=== PATIENT | female | born 1950 | race Hispanic/Latino ===

== ENCOUNTER 2017-11-22 21:50 | Emergency (ER) | payer OTHER, MEDICARE ==
[2017-11-22 22:29] LABS: EOSINOPHILS % (AUTO) 4.2 % (0.0-8.0); HEMATOCRIT 37.6 % (36-48); LYMPHOCYTES % (AUTO) 30.2 % (21.0-51.0); MEAN CORPUSCULAR HGB CONC 33.8 g/dL (32.0-36.0); MEAN CORPUSCULAR VOLUME 82.9 fL (79-99); NEUTROPHILS % (AUTO) 57.6 % (40.0-77.0); PLATELET COUNT (AUTO) 262 K/uL (130-400); RED BLOOD CELL COUNT(AUTO) 4.53 MIL/uL (4.00-5.50); RED CELL DISTRIBUTION WIDTH 13.7 % (11.0-15.5); WHITE BLOOD COUNT (AUTO) 10.6 K/uL (4.8-10.8)
[2017-11-22 22:41] LABS: CREATININE 0.6 mg/dL (0.5-1.5); POTASSIUM 4.2 mmol/L (3.5-5.1)
[2017-11-22 23:00] LABS: B-TYPE NATRIURETIC PEPTIDE 8 pg/mL (0-100)
== END 2017-11-23 00:11 | disposition home or self-care (01) ==
LOC: EDH 21:50
DX: I10 Essential (primary) hypertension (principal); E78.5 Hyperlipidemia, unspecified
CPT/HCPCS: 36415; 70450; 80048; 83880; 84484; 85025; 93005

== ENCOUNTER 2018-08-06 12:50 | Observation (INO) | payer OTHER, MEDICARE ==
[~2018-08-06] VITALS: Ht 157.5 cm; Wt 90.2 kg
[2018-08-06] MEDS ORDERED: ASPIRIN 325 MG TABLET ONE (13:00)
[2018-08-06 13:04] LABS: BASOPHILS % (AUTO) 0.7 % (0.0-5.0); EOSINOPHILS % (AUTO) 1.6 % (0.0-8.0); HEMATOCRIT 38.8 % (36-48); LYMPHOCYTES % (AUTO) 15.3 % (21.0-51.0); MEAN CORPUSCULAR HEMOGLOBIN 27.9 pg (27.0-33.0); MEAN CORPUSCULAR HGB CONC 33.4 g/dL (32.0-36.0); MEAN CORPUSCULAR VOLUME 83.4 fL (79-99); MONOCYTES % (AUTO) 5.6 % (3.0-13.0); NEUTROPHILS % (AUTO) 76.8 % (40.0-77.0); NUCLEATED RED BLOOD CELLS 0.1 % (0.0-0.19); PLATELET COUNT (AUTO) 237 K/uL (130-400); RED BLOOD CELL COUNT(AUTO) 4.65 MIL/uL (4.00-5.50); RED CELL DISTRIBUTION WIDTH 13.3 % (11.0-15.5); WHITE BLOOD COUNT (AUTO) 10.9 K/uL (4.8-10.8)
[2018-08-06 13:22] LABS: ALBUMIN 3.7 g/dL (3.5-5.0); BILIRUBIN,TOTAL 0.4 mg/dL (0.2-1.0); CREATININE 0.6 mg/dL (0.5-1.5); POTASSIUM 3.5 mmol/L (3.5-5.1); TOTAL PROTEIN, SERUM 7.6 g/dL (6.0-8.3)
[2018-08-06 13:25] LABS: INR 0.93 (0.85-1.15); PARTIAL THROMBOPLASTIN TIME 34.1 SEC (26.3-35.5); PROTHROMBIN TIME 9.8 SEC (9.6-11.6)
[2018-08-06] MEDS ORDERED: ONDANSETRON HCL 4 MG/2 ML VIAL ONE (13:28)
[2018-08-06 16:42] VITALS: BP 141/78
[2018-08-06] MEDS ORDERED: SODIUM CHLORIDE 0.9% 1000ML 1,000 ML IV SCH (17:00)
[2018-08-06] MEDS ORDERED: AEC81 PO (17:11)
[2018-08-06] MEDS ORDERED: DULO30CA51 PO (17:11)
[2018-08-06] MEDS ORDERED: LOSA100T20 PO (17:11)
[2018-08-06] MEDS ORDERED: HYDR12.530 PO (17:11)
[2018-08-06] MEDS ORDERED: ROSU20TA30 PO (17:11)
[2018-08-06] MEDS ORDERED: OMEG-148 PO (17:11)
[2018-08-06 19:15] VITALS: BP 143/67
[2018-08-06 19:45] LABS: CREATINE KINASE, TOTAL 85 U/L (21-232); MYOGLOBIN 62 ng/mL (10-92); TROPONIN I < 0.04 ng/mL (0.00-0.06)
[2018-08-06 23:53] VITALS: BP 136/64
[2018-08-07 01:54] LABS: HEMATOCRIT 37.9 % (36-48); MEAN CORPUSCULAR HEMOGLOBIN 27.9 pg (27.0-33.0); MEAN CORPUSCULAR HGB CONC 33.3 g/dL (32.0-36.0); MEAN CORPUSCULAR VOLUME 83.7 fL (79-99); NUCLEATED RED BLOOD CELLS 0.1 % (0.0-0.19); PLATELET COUNT (AUTO) 224 K/uL (130-400); RED BLOOD CELL COUNT(AUTO) 4.53 MIL/uL (4.00-5.50); RED CELL DISTRIBUTION WIDTH 13.2 % (11.0-15.5); WHITE BLOOD COUNT (AUTO) 8.5 K/uL (4.8-10.8)
[2018-08-07 01:59] LABS: CREATININE 0.6 mg/dL (0.5-1.5); POTASSIUM 3.4 mmol/L (3.5-5.1)
[2018-08-07 02:10] LABS: CREATINE KINASE, TOTAL 79 U/L (21-232); MYOGLOBIN 30 ng/mL (10-92); TROPONIN I < 0.04 ng/mL (0.00-0.06)
[2018-08-07 03:41] VITALS: BP 119/48
[2018-08-07 07:34] VITALS: BP 126/56
[2018-08-07] MEDS ORDERED: ASPIRIN 81MG TAB.CHEW PO SCH (09:00)
[2018-08-07] MEDS ORDERED: PANTOPRAZOLE SODIUM 40 MG TABLET.DR PO SCH (09:00)
[2018-08-07] MEDS ORDERED: ATORVASTATIN CALCIUM 40 MG TABLET PO SCH (09:00)
[2018-08-07] MEDS ORDERED: ENOXAPARIN SODIUM 40 MG/0.4 ML SYRINGE SQ SCH (09:00)
[2018-08-07 11:11] VITALS: BP 129/61
[2018-08-07] MEDS ORDERED: ACETAMINOPHEN 325 MG TAB PO PRN (12:00)
[2018-08-07] MEDS ORDERED: POTASSIUM CHLORIDE 10% ELIXIR 20 MEQ/15 ML UDCUP PO PRN (13:30)
[2018-08-07] MEDS ORDERED: LIDOCAINE HCL-MPF 1% 2ML VIAL IVP PRN (13:30)
[2018-08-07] MEDS ORDERED: POTASSIUM CHLORIDE 20MEQ/100ML 100 ML IV PRN (13:30)
[2018-08-07] MEDS ORDERED: POTASSIUM CHLORIDE 20 MEQ ERTAB PO PRN (13:30)
[2018-08-07 16:24] VITALS: BP 128/62
== END 2018-08-07 18:29 | disposition home or self-care (01) ==
LOC: EDH 12:50 → EDHIP 15:32 → 2DH 16:21
PROVIDERS: ADMIT Internal Medicine; ATTEND Internal Medicine
DX: R07.89 Other chest pain (principal); I12.9 Hypertensive chronic kidney disease with stage 1 through stage 4 chronic kidney disease, or unspecified chronic kidney disease; N18.9 Chronic kidney disease, unspecified; E03.9 Hypothyroidism, unspecified; E78.5 Hyperlipidemia, unspecified; M79.7 Fibromyalgia; Z82.49 Family history of ischemic heart disease and other diseases of the circulatory system; Z86.73 Personal history of transient ischemic attack (TIA), and cerebral infarction without residual deficits; Z87.891 Personal history of nicotine dependence; Z90.710 Acquired absence of both cervix and uterus; Z23 Encounter for immunization
CPT/HCPCS: 36415 ×2; 70450; 71045 ×2; 80048; 80053; 82550 ×3; 83690; 83874 ×3; 84439; 84443; 84484 ×3; 85025; 85027; 85610; 85730; 93005 ×3; 93306; 96372; 99285; G0008; G0378 ×27; J1650; J2405; Q2038

== ENCOUNTER → 2019-01-19 | Outpatient (CLI) | payer OTHER, MEDICARE ==
[~2019-01-19] MED LIST: AEC81 PO; DULO30CA51 PO; HYDR12.530 PO; LOSA100T58 PO; OMEG-148 PO; REGADENOSON 0.4 MG/5 ML PF SYG IVP SCH; ROSU20TA30 PO
== END | disposition home or self-care (01) ==
LOC: SHCH 08:34
PROVIDERS: ATTEND Internal Medicine Cardiovascular Disease
DX: R07.9 Chest pain, unspecified (principal)
CPT/HCPCS: 78452; 93017; 96374; A9500 ×2

== ENCOUNTER → 2023-03-14 | Outpatient (CLI) | payer OTHER, MEDICARE ==
[~2023-03-14] MED LIST changes: -DULO30CA51 PO; +DULO30CA52 PO; -LOSA100T58 PO; +LOSA100T59 PO; -REGADENOSON 0.4 MG/5 ML PF SYG IVP SCH; -ROSU20TA30 PO; +ROSU20TA31 PO
== END | disposition home or self-care (01) ==
LOC: SHCH 13:10
PROVIDERS: ATTEND Internal Medicine Cardiovascular Disease
DX: I08.0 Rheumatic disorders of both mitral and aortic valves (principal)
CPT/HCPCS: 93306

== ENCOUNTER → 2023-03-15 | Outpatient (CLI) | payer OTHER, MEDICARE ==
[~2023-03-15] MED LIST changes: +REGADENOSON 0.4 MG/5 ML PF SYG IVP ONE
== END | disposition home or self-care (01) ==
LOC: SHCH 07:59
PROVIDERS: ATTEND Internal Medicine Cardiovascular Disease
DX: R07.9 Chest pain, unspecified (principal)
CPT/HCPCS: 78452; 96374; 93017; J2785; A9500 ×2

== ENCOUNTER → 2023-10-14 | Outpatient (CLI) | payer OTHER, MEDICARE ==
[~2023-10-14] MED LIST changes: -REGADENOSON 0.4 MG/5 ML PF SYG IVP ONE; -ROSU20TA31 PO; +ROSU20TA73 PO
[2023-10-14 16:46] LABS: CHOLESTEROL 240 mg/dL (<200); HDL CHOLESTEROL 72 mg/dL (35-85); LDL DIRECT 137 mg/dL (0-99); TRIGLYCERIDES 105 mg/dL (30-200)
== END | disposition home or self-care (01) ==
LOC: LAB 11:40
PROVIDERS: ATTEND Physician Assistant
DX: I10 Essential (primary) hypertension (principal); E78.5 Hyperlipidemia, unspecified; I35.0 Nonrheumatic aortic (valve) stenosis
CPT/HCPCS: 36415; 80061

== ENCOUNTER 2023-12-09 04:59 | Observation (INO) | payer OTHER, MEDICARE ==
[2023-12-05 13:22] VITALS: BP 188/73; PULSE 61; RESP 19
[~2023-12-09] VITALS: Ht 154.9 cm; Wt 92.0 kg
[2023-12-09] VITALS (27 sets, daily range): BP systolic 120–227; BP diastolic 52–93; PULSE 67–91; RESP 12–20
[~2023-12-09 04:59] MED LIST changes: +BUDE10.7 IH; +CETI10TA57 PO; -DULO30CA52 PO; +FLUT15.845 NS; -HYDR12.530 PO; +LEVO50CA4 PO; -LOSA100T59 PO; +METF-444 PO; -OMEG-148 PO; +PANT40TA54 PO; +ROSU10TA28 PO; -ROSU20TA73 PO; +VALS320T16 PO; +albuterol sulfate IH
[2023-12-09] MEDS: 0.9%NACL 1000ML 1,000 ML IV ONE ×2 (06:59→10:22)
[2023-12-09] MEDS: CEFAZOLIN SODIUM 2 GM VIAL ONE (07:00)
[2023-12-09] MEDS ORDERED: LIDOCAINE PF 100MG/5ML (2%) SYRINGE 5ML ONE (08:56)
[2023-12-09] MEDS ORDERED: DEXAMETHASONE SOD PHOSPHATE 10MG/ML 1ML VIAL ONE (08:56)
[2023-12-09] MEDS ORDERED: PROPOFOL 10 MG/ML 20ML VIAL IV ONE (08:56)
[2023-12-09] MEDS ORDERED: GLYCOPYRROLATE 0.2 MG/ML 5 ML VIAL ONE (08:56)
[2023-12-09] MEDS ORDERED: SUCCINYLCHOLINE CHLORIDE 20 MG/ML 10 ML VIAL ONE (08:56)
[2023-12-09] MEDS ORDERED: ROCURONIUM BROMIDE 10MG/1ML 5ML VL ONE (08:57)
[2023-12-09] MEDS ORDERED: ONDANSETRON 4MG INJ ONE (08:57)
[2023-12-09] MEDS ORDERED: MIDAZOLAM HCL 1 MG/ML 2ML VIAL ONE (08:57)
[2023-12-09] MEDS ORDERED: FENTANYL CITRATE PF 50 MCG/1 ML 2ML VIAL ONE ×3 (08:57→11:56)
[2023-12-09] MEDS ORDERED: NEOSTIGMINE METHYLSULFATE 1MG/ML IV ONE (08:57)
[2023-12-09] MEDS: TRANEXAMIC ACID 1000MG/10ML ONE ×2 (11:34→12:50)
[2023-12-09] MEDS: CEFAZOLIN SODIUM 1 GM VIAL ONE (11:50)
[2023-12-09] MEDS: GENTAMICIN SULFATE 80 MG/2 ML VIAL ONE (11:50)
[2023-12-09] MEDS: 0.9%NACL 48.45 ML, ROPIVACAINE 0.5% 49.25ML, EPINEPH 0.5MG KETOROLAC 30MG,CLONIDINE 80MCG IV PRN (11:50)
[2023-12-09] MEDS: TRANEXAMIC ACID 1000MG/10ML IV ONE (12:55)
[2023-12-09] MEDS ORDERED: EPHEDRINE SULFATE 50 MG/ML AMPULE ONE (13:32)
[2023-12-09] MEDS: MEPERIDINE-PF 25 MG/ML SYG ONE (14:41)
[2023-12-09] MEDS ORDERED: ACETAMINOPHEN 325 MG TAB PO PRN (22:00)
[2023-12-09] MEDS ORDERED: DIPHENHYDRAMINE HCL 25 MG CAPSULE PO PRN (22:00)
[2023-12-09] MEDS ORDERED: ACETAMINOPHEN 325 MG TAB PO SCH (22:00)
[2023-12-09] MEDS ORDERED: ONDANSETRON 4MG INJ IVP PRN (22:00)
[2023-12-09] MEDS ORDERED: LACTULOSE 20 GM/30 ML UDCUP PO PRN (22:00)
[2023-12-09] MEDS ORDERED: MAG/ALUM/SIMETH 30 ML UDCUP PO PRN (22:00)
[2023-12-09] MEDS ORDERED: DIPHENOXYLATE HCL/ATROPINE 2.5/0.025 MG TAB PO PRN (22:00)
[2023-12-09] MEDS ORDERED: DIPHENHYDRAMINE HCL 25 MG CAPSULE PO SCH (22:00)
[2023-12-09] MEDS ORDERED: BENZOCAINE/MENTH/CETYLPYRD CL 1 EACH LOZENGE MM PRN (22:00)
[2023-12-09] MEDS: 0.9%NACL 1000ML 1,000 ML IV SCH (23:14)
[2023-12-09] MEDS: TRAMADOL HCL 50 MG TABLET PO PRN (23:16)
[2023-12-10] MEDS: HYDROMORPH /0.9% NACL/PF PCA 50 ML IV PRN (00:27)
[2023-12-10] MEDS: ACETAMINOPHEN 325 MG TAB PO PRN (01:27)
[2023-12-10] MEDS ORDERED: ALBUTEROL SULFATE IH PRN (03:00)
[2023-12-10] MEDS ORDERED: NON-FORMULARY MEDICATION 1 EACH (Cetirizine HCl 10 MG) PO PRN (03:00)
[2023-12-10] MEDS ORDERED: DEXTROSE 50%-WATER 50 ML DISP.SYRIN IV PRN (04:00)
[2023-12-10] MEDS ORDERED: GLUCAGON 1MG KIT 1 MG ML IM PRN (04:00)
[2023-12-10 04:10] VITALS: BP 137/56; PULSE 72; RESP 18
[2023-12-10 04:20] LABS: HEMATOCRIT 31.7 % (36-48); MEAN CORPUSCULAR HEMOGLOBIN 27.5 pg (27.0-33.0); MEAN CORPUSCULAR HGB CONC 33.1 g/dL (32.0-36.0); RED BLOOD CELL COUNT(AUTO) 3.82 MIL/uL (4.00-5.50); RED CELL DISTRIBUTION WIDTH 13.4 % (11.0-15.5); WHITE BLOOD COUNT (AUTO) 13.3 K/uL (4.8-10.8)
[2023-12-10 04:34] LABS: CREATININE 0.5 mg/dL (0.5-1.5); POTASSIUM 3.8 mmol/L (3.5-5.1)
[2023-12-10] MEDS ORDERED: NON-FORMULARY MEDICATION 1 EACH (Levothyroxine Sodium (Levothyroxine) 50 MCG) PO SCH ×2 (05:30→09:00)
[2023-12-10] MEDS: INSULIN HUMULIN R 100 UNIT/ML 3ML SQ SCH (06:32)
[2023-12-10] MEDS: LEVOTHYROXINE 50 MCG TABLET PO SCH (06:33)
[2023-12-10] MEDS ORDERED: Breztri Aerosphere Inhaler IH PRN (07:00)
[2023-12-10] MEDS ORDERED: FLUTICASONE PROPIONATE 50MCG/SPRAY 16 GM BOTTLE EN PRN (07:00)
[2023-12-10] MEDS ORDERED: ALBUTEROL 0.083% 2.5 MG/3 ML INH IH PRN (07:00)
[2023-12-10] MEDS ORDERED: CETIRIZINE HCL 5 MG TABLET PO PRN (07:00)
[2023-12-10 08:00] VITALS: BP 136/94; PULSE 75; RESP 18; O2SAT 97
[2023-12-10] MEDS ORDERED: NON-FORMULARY MEDICATION 1 EACH (Valsartan 320 MG) PO SCH (09:00)
[2023-12-10] MEDS: METFORMIN HCL 500 MG TABLET PO SCH (09:11)
[2023-12-10] MEDS: LOSARTAN 100 MG TABLET PO SCH (09:11)
[2023-12-10] MEDS: RIVAROXABAN 10 MG TABLET PO SCH (09:11)
[2023-12-10 12:00] VITALS: BP 147/57; PULSE 70; RESP 17
[2023-12-10] MEDS ORDERED: PANTOPRAZOLE 40 MG TAB DR PO SCH (21:00)
[2023-12-10] MEDS ORDERED: NON-FORMULARY MEDICATION 1 EACH (Rosuvastatin Calcium 10 MG) PO SCH (21:00)
[2023-12-10] MEDS ORDERED: ATORVASTATIN 40 MG TABLET PO SCH (21:00)
== END 2023-12-10 14:15 | disposition home or self-care (01) ==
LOC: DAH 04:59 → DAHIP 05:00 → DAH 05:00 → 4AH 21:17
PROVIDERS: ADMIT Orthopaedic Surgery; ATTEND Orthopaedic Surgery
DX: M17.11 Unilateral primary osteoarthritis, right knee (principal); E11.9 Type 2 diabetes mellitus without complications; E03.9 Hypothyroidism, unspecified; E66.9 Obesity, unspecified; E78.5 Hyperlipidemia, unspecified; I10 Essential (primary) hypertension; J44.9 Chronic obstructive pulmonary disease, unspecified; K21.9 Gastro-esophageal reflux disease without esophagitis; I35.0 Nonrheumatic aortic (valve) stenosis; Z68.30 Body mass index [BMI] 30.0-30.9, adult; Z68.38 Body mass index [BMI] 38.0-38.9, adult; Z79.84 Long term (current) use of oral hypoglycemic drugs; Z86.73 Personal history of transient ischemic attack (TIA), and cerebral infarction without residual deficits; Z90.710 Acquired absence of both cervix and uterus; Z79.82 Long term (current) use of aspirin
CPT/HCPCS: 87641; 27447; 97161; 82948 ×3; 97012; 97116 ×2; 97530 ×3; G0378; A4663; J7030 ×4; A4215 ×2; A4649 ×4; J3010 ×3; J0690 ×2; J3490 ×6; J1100; J0330; J2001; J1580; J2250; J2704; J2405; J2710; J2175; A6223; A4930; C1763 ×2; C1776; A5120; A4223; A4222; A4221; A6450; A4600; 36415; 80048; 85027; 96365; 96366

== ENCOUNTER 2025-05-09 03:00 | Emergency (ER) | payer OTHER, MEDICARE ==
[~2025-05-09] VITALS: Ht 157.5 cm; Wt 97.1 kg
[~2025-05-09 03:00] MED LIST changes: -LEVO50CA4 PO; +LEVO50CA5 PO; -ROSU10TA28 PO; +ROSU10TA72 PO
[2025-05-09 04:10] VITALS: PULSE 71; RESP 20
[2025-05-09] MEDS: BUDESONIDE 0.5 MG/2 ML INH IH SCH (04:10)
[2025-05-09] MEDS: IpraTROPium/alBUTERol SULFATE 3 ML SOLUTION IH ONE (04:10)
[2025-05-09 04:20] LABS: BASOPHILS # (AUTO) 0.05 K/uL (0.00-0.20); BASOPHILS % (AUTO) 0.5 % (0.0-5.0); EOSINOPHILS # (AUTO) 0.35 K/uL (0.00-0.70); EOSINOPHILS % (AUTO) 3.8 % (0.0-8.0); HEMATOCRIT 39.1 % (36-48); IMMATURE GRANULOCYTE ABSOLUTE 0.02 K/uL (0-1); LYMPHOCYTES # (AUTO) 2.3 K/uL (1.0-4.8); LYMPHOCYTES % (AUTO) 25.5 % (21.0-51.0); MEAN CORPUSCULAR HEMOGLOBIN 27.6 pg (27.0-33.0); MEAN CORPUSCULAR HGB CONC 33.2 g/dL (32.0-36.0); MONOCYTES # (AUTO) 0.6 K/uL (0.1-1.0); MONOCYTES % (AUTO) 6.8 % (3.0-13.0); NEUTROPHILS # (AUTO) 5.8 K/uL (1.8-7.7); NEUTROPHILS % (AUTO) 63.2 % (40.0-77.0); PLATELET COUNT (AUTO) 263 K/uL (130-400); RED BLOOD CELL COUNT(AUTO) 4.71 MIL/uL (4.00-5.50); RED CELL DISTRIBUTION WIDTH 13.6 % (11.0-15.5); WHITE BLOOD COUNT (AUTO) 9.1 K/uL (4.8-10.8)
[2025-05-09 04:32] LABS: CREATININE 0.8 mg/dL (0.5-1.0); POTASSIUM 3.8 mmol/L (3.5-5.1)
[2025-05-09 04:37] LABS: ALBUMIN 3.7 g/dL (3.5-5.0); BILIRUBIN,TOTAL 0.3 mg/dL (0.2-1.0); TOTAL PROTEIN, SERUM 7.6 g/dL (6.0-8.3)
[2025-05-09] MEDS: BUDESONIDE 0.5 MG/2 ML INH IH ONE ×2 (05:02→05:03)
[2025-05-09 05:03] VITALS: PULSE 74; RESP 20
[2025-05-09] MEDS: BUDESONIDE 0.25 MG/2 ML INH IH ONE (05:03)
--- NOTE | 2025-05-09 05:10 | HMCIMG ---
EXAM: CR Chest, 1 view CLINICAL HISTORY: Shortness of breath. COMPARISON: None provided. FINDINGS: 0.8 cm calcified granuloma in the left upper zone. The lungs show no infiltrates or other acute findings. No pleural effusion or pneumothorax. The cardiomediastinal silhouette is within normal limits. Mild atherosclerotic aorta. No acute osseous abnormality. Mildly elevated right hemidiaphragm. IMPRESSION: No acute cardiopulmonary process is evident. 0.8 cm calcified granuloma in the left upper zone. /[place]
[2025-05-09] MEDS ORDERED: LEVO750T68 PO (05:25)
--- NOTE | 2025-05-09 05:25 | ERN ---
General Chief Complaint: Multiple Complaints Stated Complaint: HIGH BLOOD SUGAR AT HOME OF 214, HEADACHE, SOB Time Seen by MD: 03:28 History of Present Illness Initial Comments Mr. Schafer is a very pleasant 74-year-old female who comes in today with a chief complaint of shortness of breath. Patient has a history of type 2 diabetes hypothyroidism and COPD. Patient reports she is on Advair for her breathing. Patient reports he has been having increased cough and has elevated blood sugar. Patient also has headache. Patient states that in his sputum as she has been producing in his white color Allergies: Coded Allergies: No Known Allergies (Verified Allergy, Unknown, 08/06/18) Home Meds Reported Medications [albuterol sulfate] No Conflict Check, 3 ML IH AD PRN for SHORTNESS OF BREATH 12/05/23 Valsartan (Valsartan) 320 Mg Tablet, 320 MG PO AM, TAB 12/05/23 Rosuvastatin Calcium (Rosuvastatin Calcium) 10 Mg Tablet, 10 MG PO HS, TAB 12/05/23 Pantoprazole Sodium (Pantoprazole Sodium) 40 Mg Tablet.dr, 40 MG PO HS, TAB 12/05/23 Metformin HCl (Metformin HCl) 500 Mg Tablet, 500 MG PO AM, TAB 12/05/23 Levothyroxine Sodium (Levothyroxine) 50 Mcg Capsule, 50 MCG PO AM, CAP 12/05/23 Fluticasone Propionate (Fluticasone Propionate) 50 Mcg/Actuation [place].susp, 1 SPRAY NS AD PRN for congestion 12/05/23 Cetirizine HCl (Cetirizine HCl) 10 Mg Tablet, 10 MG PO AM PRN for allergies, TAB 12/05/23 Budesonide/Glycopyr/Formoterol (Breztri Aerosphere Inhaler) 160 Mcg-9 Mcg-4.8 Mcg/Actuation Hfa.aer.ad, 2 PUFF IH BID PRN for SHORTNESS OF BREATH 12/05/23 Aspirin (ASPIRIN 81 MG ECTAB) 81 Mg Ectab, 81 MG PO HS, TAB.EC 08/06/18 Past Medical History Past Medical History: Asthma, COPD, Diabetes-Type II, High Cholesterol, Hypertension, Hyperthyroid, Hypothyroid, Renal Disese Past Surgical History: Hysterectomy, Cholecystectomy, Other Surgical History Other: RT KNEE REPLACEMENT 12/09/23 ROS Dictation Constitutional: Negative for fever,chills, and weight loss Eyes: Negative for injury, pain,redness, and discharge ENT: Negative for injury,pain or swelling Cardiovascular: Negative for chest pain, palpitations, and edema Respiratory: Positive for cough and wheezing Abdomen/GI: Negative for abdominal pain, nausea, vomiting, diarrhea, and constipation Back: Negative for injury and pain : Negative for injury, bleeding and discharge MS/Extremity: Negative for injury and deformity Skin: Negative for rash, and discoloration Neuro: Negative for headache, weakness, numbness, tingling, and seizure Psych: Negative for suicide ideation, homicidal ideation, and hallucinations Physical Exam Physical Exam Dictation General: awake, alert, NAD Head/Face: Normocephalic, atraumatic Eyes: PERRL, EOMI, vision at baseline ENT: oral cavity clear, TMs clear, no signs of infection Neck: Trachea midline, supple, no nuchal rigidity Cardiovascular: RRR, normal S1/S2, No MRGs, no JVD Respiratory: Diminished breath sounds bilaterally occasional wheeze Abdomen: Soft, non-tender, non-distended, normal bowel sounds, Skin: Warm, dry, normal turgor, no rash MS/Extremity: Pulses equal, no cyanosis, neurovascular intact, FROM Neuro: COAx4, GCS 15, strength 5/5, CN 2-12 intact, normal cerebellar exam, normal gait, Psych: Normal behavior, mood, and affect normal Results Laboratory and Microbiology Lab and Micro Result Laboratory Tests Test 05/09/25 04:14 White Blood Count 9.1 K/uL (4.8-10.8) Red Blood Count 4.71 MIL/uL (4.00-5.50) Hemoglobin 13.0 g/dL (12.0-16.0) Hematocrit 39.1 % (36-48) Mean Corpuscular Volume 83.0 fL (79-99) Mean Corpuscular Hemoglobin 27.6 pg (27.0-33.0) Mean Corpuscular Hemoglobin Concent 33.2 g/dL (32.0-36.0) Red Cell Distribution Width 13.6 % (11.0-15.5) Platelet Count 263 K/uL (130-400) Mean Platelet Volume 10.7 fL (7.5-10.5) H Immature Granulocyte % (Auto) 0.2 % (0-1) Neutrophils (%) (Auto) 63.2 % (40.0-77.0) Lymphocytes (%) (Auto) 25.5 % (21.0-51.0) Monocytes (%) (Auto) 6.8 % (3.0-13.0) Eosinophils (%) (Auto) 3.8 % (0.0-8.0) Basophils (%) (Auto) 0.5 % (0.0-5.0) Neutrophils # (Auto) 5.8 K/uL (1.8-7.7) Lymphocytes # (Auto) 2.3 K/uL (1.0-4.8) Monocytes # (Auto) 0.6 K/uL (0.1-1.0) Eosinophils # (Auto) 0.35 K/uL (0.00-0.70) Basophils # (Auto) 0.05 K/uL (0.00-0.20) Absolute Immature Granulocyte (auto 0.02 K/uL (0-1) Nucleated Red Blood Cells 0.0 % (0.0-0.19) Sodium Level 135 mmol/L (136-145) L Potassium Level 3.8 mmol/L (3.5-5.1) Chloride Level 98 mmol/L (101-111) L Carbon Dioxide Level 30 mmol/L (21-32) Blood Urea Nitrogen 13 mg/dL (7-18) Creatinine 0.8 mg/dL (0.5-1.0) Glomerular Filtration Rate Calc 78 mL/min (>90) Random Glucose 222 mg/dL (70-105) H Total Calcium 9.3 mg/dL (8.5-10.1) Total Bilirubin 0.3 mg/dL (0.2-1.0) Aspartate Amino Transf (AST/SGOT) 11 U/L (10-37) Alanine Aminotransferase (ALT/SGPT) 25 U/L (12-78) Alkaline Phosphatase 106 U/L (50-136) Total Protein 7.6 g/dL (6.0-8.3) Albumin 3.7 g/dL (3.5-5.0) MDM Patient is much improved after receiving DuoNeb and Pulmicort. Patient reports that she is feeling much better and would like to go home. Patient already has Advair and albuterol. Patient has received DuoNebs. We will consider giving the patient Levaquin for further treatment MDM: Differential diagnosis: COPD exacerbation Rationale: Tests considered and ordered secondary to shared decision making include: Previous outside records reviewed: Old ER visits. Risk of complication and/or morbidity or mortality of patient management: None Medications-Per medication reconciliation Need for hospitalization: Patient does not meet criteria for hospitalization. Need for emergency major/minor surgery: No There are no social concerns with this patient. Prescription drug management Prescriptions will include symptomatic care Patient's prior external medical records from other ER visits were reviewed by me as indicated. Prior testing and results from previous visits were reviewed. Prior tests were taken into account with medical decision making and resource utilization, independent historian/historians were used to obtain complete medical history. I independently interpreted the test that were performed, results were reviewed by me and considered findings on radiology if ordered. Medical management and examination interpretation discussions were had by me with other qualified healthcare professionals as indicated for the patient's care. ED Course Orders Procedure Category Date Status Time Comprehensive LAB 05/09/25 Complete Metabolic Panel 03:41 Chest 1vw RAD 05/09/25 Resulted 03:41 Budesonide 0.5 Mg/2 PHA 05/09/25 In Process Ml Inh (Pulmicort 0. 06:00 Ipratropium/Albuterol PHA 05/09/25 Complete Neb (Duoneb) 04:00 Budesonide 0.5 Mg/2 PHA 05/09/25 Complete Ml Inh (Pulmicort 0. 04:08 Cbc With Differential LAB 05/09/25 Complete 04:14 Budesonide 0.25 Mg/2 PHA 05/09/25 Complete Ml Inh (Pulmicort 0 04:45 Budesonide 0.5 Mg/2 PHA 05/09/25 Complete Ml Inh (Pulmicort 0. 04:46 Current Medications Medications (Trade) Dose Ordered Sig/[place]ice[place] Route PRN Reason Start Time Stop Time Status Last Admin Dose Admin Albuterol (DUOneb) 1 UDVIAL ONCE ONCE IH 05/09/25 04:00 05/09/25 04:05 DC 05/09/25 04:10 Budesonide (Pulmicort 0.25mg/2ml) 0.25 mg STK-MED ONCE IH 05/09/25 04:45 05/09/25 04:46 DC Budesonide (Pulmicort 0.5 Mg/2ml) 0.5 mg BIDRESP IH 05/09/25 06:00 06/08/25 05:59 05/09/25 04:10 Budesonide (Pulmicort 0.5 Mg/2ml) 0.5 mg STK-MED ONCE IH 05/09/25 04:08 05/09/25 04:13 DC Budesonide (Pulmicort 0.5 Mg/2ml) 0.5 mg STK-MED ONCE 05/09/25 04:46 05/09/25 04:46 DC 05/09/25 05:02 Vital Signs Date Time Temp Pulse Resp B/P (MAP) Pulse Ox O2 Delivery O2 Flow Rate FiO2 05/09/25 05:03 74 20 05/09/25 04:10 71 20 05/09/25 04:06 75 18 203/66 96 Room Air* 0 21 05/09/25 03:02 97.2 72 18 203/70 95 Room Air 0 DX & DISP Disposition: Discharge Departure Impression: Primary Impression: COPD (chronic obstructive pulmonary disease) Condition: Stable Scripts Levofloxacin (Levaquin 750Mg Tabs) 750 Mg Tablet 1 TAB PO DAILY for 5 Days, #5 TAB 0 Refills Prov: MEET ÁLVAREZ MD 05/09/25 Referrals: JOHANNA LATIF MD (PCP) MEET ÁLVAREZ MD May 09, 2025 05:25
[2025-05-09] MEDS: levoFLOXacin 500 MG TABLET PO ONE (05:52)
[2025-05-09 06:40] VITALS: TEMP 97.3
--- NOTE | 2025-05-09 06:45 | NUR ---
PATIENT READY FOR DISCHARGE, STILL HYPERTENSIVE. ER MD AWARE, MEDICATION ORDERED AND ADMINISTERED, WILL DISCHARGE AFTER BP IMPROVES
[2025-05-09] MEDS: cloNIDine HCL 0.2 MG TABLET PO ONE ×2 (06:47)
[2025-05-09 07:42] VITALS: BP 173/62; PULSE 74; RESP 17; O2SAT 98
== END 2025-05-09 07:44 | disposition home or self-care (01) ==
LOC: EDH 03:00
DX: J44.9 Chronic obstructive pulmonary disease, unspecified (principal); E11.65 Type 2 diabetes mellitus with hyperglycemia; E03.9 Hypothyroidism, unspecified; E78.00 Pure hypercholesterolemia, unspecified; I10 Essential (primary) hypertension; Z79.51 Long term (current) use of inhaled steroids; Z79.82 Long term (current) use of aspirin; Z90.49 Acquired absence of other specified parts of digestive tract; Z90.710 Acquired absence of both cervix and uterus; Z96.651 Presence of right artificial knee joint
CPT/HCPCS: 36415; 71045; 80053; 85025; 94640; 99284